=== PATIENT | female | born 1970 | race Caucasian/White ===

== ENCOUNTER 2021-06-30 18:01 | Emergency (ER) | payer OTHER, MEDICAID, SELFPAY ==
[~2021-06-30] VITALS: Ht 167.6 cm; Wt 100.2 kg
[2021-06-30 18:07] VITALS: BP_SYST 135
--- NOTE | 2021-06-30 18:10 | NUR ---
Patient to ER bed 1 to gown for evaluation. Side rails up. Report given to LILA AGOSTO.
--- NOTE | 2021-06-30 18:12 | NUR ---
Pt came into ER with new onset of bilateral lower extremity swelling [id number]. Pt presenting with raspy voice with cough and bilateral lower extremity swelling with pain 8/10. Pt is AAOX3 speaking full sentences breathing is even and unlabored. Pt reports she is a 20 year plus smoker. VSS no acute distress noted at this time. Wheezes heard bilaterally in lung gonzalez. Resting in gurney attached to monitor.
--- NOTE | 2021-06-30 18:15 | NUR ---
ER at bedside examining patient.
--- NOTE | 2021-06-30 18:48 | NUR ---
X-ray at bedside.
--- NOTE | 2021-06-30 18:51 | NUR ---
# 22 gauge angiocath placed to LFA. Use of asceptic technique. Opsite placed over site. Blood return noted. Blood for lab drawn from site. Flushed with 10 cc of normal saline. No evidence of infiltration noted. Patient tolerated well.
--- NOTE | 2021-06-30 18:51 | NUR ---
Lab at bedside.
--- NOTE | 2021-06-30 19:10 | NUR ---
Pt ambulated to restroom independently for urine specimen gait steady and straight.
[2021-06-30 19:11] LABS: ANION GAP 7 (5-15); CALCIUM 8.4 mg/dL (8.4-11.0); CHLORIDE 103 mmol/L (98-107); GLUCOSE 91 mg/dL (70-99); POTASSIUM 3.9 mmol/L (3.5-5.1); SODIUM SERUM 140 mmol/L (136-145); UREA NITROGEN, BLOOD 7 mg/dL (8-21)
[2021-06-30 19:12] LABS: GFR AFRICAN AMERICAN 113 mL/min (>90)
--- NOTE | 2021-06-30 19:12 | NUR ---
Report given to Sanjay AGOSTO.
[2021-06-30 19:14] LABS: HEMOGLOBIN 7.5 g/dL (12.0-16.0); MEAN CORPUSCULAR HEMOGLOBIN 21 pg (27-31); PLATELET COUNT (AUTO) 349 K/uL (130-430)
[2021-06-30 19:17] LABS: BASOPHILS % (AUTO) 0.5 % (0.0-2.0); EOSINOPHILS # (AUTO) 0.1 K/uL (0.0-0.4); EOSINOPHILS % (AUTO) 1.9 % (0.0-4.0); HEMATOCRIT 23.9 % (36-48); LYMPHOCYTES # (AUTO) 2.3 K/uL (1.0-5.5); LYMPHOCYTES % (AUTO) 35.1 % (20.5-51.5); MEAN CORPUSCULAR HGB CONC 31 % (32-36); MEAN CORPUSCULAR VOLUME 66 fL (79.0-98.0); MONOCYTES # (AUTO) 0.7 K/uL (0.0-1.0); MONOCYTES % (AUTO) 10.7 % (1.7-9.3); NEUTROPHILS # (AUTO) 3.4 K/uL (1.8-7.7); NEUTROPHILS % (AUTO) 51.8 % (40.0-70.0); RED BLOOD CELL COUNT(AUTO) 3.63 MIL/uL (4.2-6.2); RED CELL DISTRIBUTION WIDTH 18.8 % (9.0-15.0); WHITE BLOOD COUNT (AUTO) 6.5 K/uL (4.8-10.8)
[2021-06-30 19:19] LABS: ALANINE AMINOTRANSFERASE 61 U/L (12-78); ALBUMIN 3.3 g/dL (3.4-4.8); ASPARTATE AMINOTRANSFERASE 37 U/L (10-37); TOTAL BILIRUBIN 0.3 mg/dL (0.0-1.0)
--- NOTE | 2021-06-30 19:30 | NUR ---
ASSUMED CARE OF PT FROM LILA AGOSTO
[2021-06-30 19:35] LABS: BARBITURATE, URINE NEGATIVE (NEG <=200); BENZODIAZEPINE, URINE NEGATIVE (NEG <=150); CANNABINOID, URINE NEGATIVE (NEG <=50); COCAINE, URINE NEGATIVE (NEG <=150); METHAMPHETAMINES SCREEN,URINE NEGATIVE (NEG <=500); OPIATE, URINE POSITIVE (NEG <=100); PHENCYCLIDINE SCREEN,URINE NEGATIVE (NEG <=25); UR TRICYCLIC ANTIDEPRESSANTS NEGATIVE (NEG <=300); URINE AMPHETAMINE NEGATIVE (NEG <=500); URINE METHADONE NEGATIVE (NEG <=200); URINE OXYCODONE SCREEN POSITIVE (NEG <=100); URINE PROPOXYPHENE SCREEN NEGATIVE (NEG <=300)
--- NOTE | 2021-06-30 20:08 | NUR ---
US AT BEDSIDE
[2021-06-30 20:25] LABS: BILIRUBIN,URINE NEGATIVE (NEGATIVE); BLOOD, URINE NEGATIVE (NEGATIVE); CLARITY/URINE CLEAR (CLEAR); COLOR,URINE YELLOW (YELLOW); GLUCOSE,URINE NEGATIVE (NEGATIVE); KETONES,URINE NEGATIVE (NEGATIVE); LEUKOCYTE ESTERASE ,URINE NEGATIVE (NEGATIVE); NITRITE, URINE NEGATIVE (NEGATIVE); PROTEIN URINE NEGATIVE (NEGATIVE); UROBILINOGEN,URINE 0.2 (0.2-1.0)
--- NOTE | 2021-06-30 21:47 | NUR ---
Patient given written and verbal discharge instructions and verbalizes understanding. ER MD discussed with patient the results and treatment provided. Patient in stable condition. ID arm band removed. Rx of given. Patient educated on pain management and to follow up with PMD. Pain Scale 2/10. Opportunity for questions provided and answered. Medication side effect fact sheet provided.
[2021-06-30 21:59] VITALS: BP_SYST 134
== END 2021-06-30 21:47 | disposition home or self-care (01) ==
LOC: SED 18:01
DX: R60.0 Localized edema (principal); D64.9 Anemia, unspecified; R74.8 Abnormal levels of other serum enzymes; Z79.899 Other long term (current) drug therapy; Z20.822 Contact with and (suspected) exposure to COVID-19
CPT/HCPCS: 36415; 71045; 80053; 80307; 81003; 83880; 84484; 85025; 93005; 93970; 99285

== ENCOUNTER 2022-01-05 23:02 | Emergency (ER) | payer MEDICAID, OTHER, SELFPAY ==
[~2022-01-05] VITALS: Ht 167.6 cm; Wt 99.8 kg
--- NOTE | 2022-01-05 23:09 | NUR ---
Patient to ER bed 7 to gown for evaluation. Side rails up. Report given to .
[2022-01-05 23:12] VITALS: BP_SYST 138
--- NOTE | 2022-01-05 23:14 | NUR ---
DR ESCALANTE IN ROOM FOR EXAM
[2022-01-05] MEDS ORDERED: METH-634 PO (23:22)
[2022-01-05] MEDS ORDERED: HYDROmorphone 1 MG/ML INJ. CARTRIDGE IM ONE (23:30)
[2022-01-05] MEDS ORDERED: CYCLOBENZAPRINE HCL 10 MG TABLET (FLEXERIL) PO ONE (23:30)
--- NOTE | 2022-01-06 00:02 | NUR ---
Pt C/O left neck pain Pt medicated Pt DC per MD's order DC instructions and prescriptions given to pt Pt verbalized understandings AOX4 VSS NAD at this time Pt exited ED in stable condition
== END 2022-01-06 00:01 | disposition home or self-care (01) ==
LOC: SED 23:02
DX: G89.29 Other chronic pain (principal); M54.2 Cervicalgia; F11.90 Opioid use, unspecified, uncomplicated; J45.909 Unspecified asthma, uncomplicated; Z79.899 Other long term (current) drug therapy
CPT/HCPCS: 96372; 99283; J1170

== ENCOUNTER 2022-01-17 11:32 | Emergency (ER) | payer MEDICAID ==
[~2022-01-17] VITALS: Ht 167.6 cm; Wt 94.8 kg
[~2022-01-17 11:32] MED LIST: METH-634 PO
[2022-01-17 11:54] VITALS: BP_SYST 132
[2022-01-17] MEDS ORDERED: predniSONE 20 MG TABLET PO ONE (12:45)
[2022-01-17] MEDS ORDERED: DIAZEPAM 5 MG TABLET (VALIUM) PO ONE (12:45)
== END 2022-01-17 13:05 | disposition left against medical advice (07) ==
LOC: SED 11:32
DX: G89.29 Other chronic pain (principal); R51.9 Headache, unspecified; M54.2 Cervicalgia; Z79.899 Other long term (current) drug therapy
CPT/HCPCS: 99283; J7512; 99281

== ENCOUNTER 2022-02-25 17:57 | Emergency (ER) | payer MEDICAID ==
[~2022-02-25] VITALS: Ht 167.6 cm; Wt 94.8 kg
[2022-02-25 18:25] VITALS: BP_SYST 125
--- NOTE | 2022-02-25 18:31 | NUR ---
Pt placed in waiting room waiting for bed to become available. Dr. Ureña made aware.
--- NOTE | 2022-02-25 19:53 | NUR ---
Pt brought self in from home due to c/o LLE pain and swelling x3 days ago. Pt states she saw her PCP on Thursday and was told to just elevate her extremity. Per pt, symptoms have worsened and pain is mostly behid the knee. +1 pitting edema noted to LLE. No discoloration; redness to site. Pt also states this am she woke up this am with neck pain which worsens with movement and also reports back spasms. Medical hx of back surgery x2 within the last 2 years and chronic pain. Addendum: 02/25/22 at 2134 by [id number] TRINY Austin
[2022-02-25] MEDS ORDERED: MORPHINE 4 MG INJ. 4 MG/ML VIAL IM ONE (20:15)
--- NOTE | 2022-02-25 20:45 | NUR ---
US at bedside for imaging.
--- NOTE | 2022-02-25 21:33 | NUR ---
Pt taken to CT for imaging via w/c.
--- NOTE | 2022-02-25 23:20 | NUR ---
Patient given written and verbal discharge instructions and verbalizes understanding. ER MD Ureña discussed with patient the results and treatment provided. Patient in stable condition. ID arm band removed. Patient educated on pain management and to follow up with PMD. Pain Scale 1/10. Opportunity for questions provided and answered.
[2022-02-25 23:21] VITALS: BP_SYST 131
== END 2022-02-25 23:20 | disposition home or self-care (01) ==
LOC: SED 17:57
DX: M79.662 Pain in left lower leg (principal); G89.29 Other chronic pain; M54.2 Cervicalgia; Z79.899 Other long term (current) drug therapy
CPT/HCPCS: 73700; 76376; 93971; 96372; 99284; J2270

== ENCOUNTER 2022-04-18 18:59 | Emergency (ER) | payer MEDICAID ==
[~2022-04-18] VITALS: Ht 167.6 cm; Wt 97.1 kg
[2022-04-18 19:32] VITALS: BP_SYST 122
--- NOTE | 2022-04-18 19:38 | NUR ---
Patient triaged and placed in waiting room. VSS and patient appears in no acute distress at this time. Accompanied by SELF, awaiting available bed, and MD notified of need for MSE.
--- NOTE | 2022-04-18 21:40 | NUR ---
Patient to ER bed 07 to gown for evaluation. Side rails up. Report given to TRINY Willson
--- NOTE | 2022-04-18 22:20 | NUR ---
Pt to bed 7 w/ c/o BLE swelling with pitting edema and pain 10/10 x "last few days". Pt states she had a cervical spine fusion x 1 week ago. C-collar on patient at this time. HOB elevated to 45 degrees and support placed for neck and back w/ blankets. Respirations even and unlabored. Pedal pulse palpable bilaterally. On cardiac monitor technician. side rails up. bed in lowest position.
[2022-04-18] MEDS ORDERED: ONDANSETRON HCL 4 MG/2 ML VIAL IVP ONE (22:30)
[2022-04-18] MEDS ORDERED: MORPHINE 4 MG INJ. 4 MG/ML VIAL IVP ONE (22:30)
[2022-04-18] MEDS ORDERED: NACL 0.9% 1,000 ML IV ONE (22:30)
[2022-04-18 23:08] LABS: LYMPHOCYTES # (AUTO) 1.6 K/uL (1.0-5.5); RED CELL DISTRIBUTION WIDTH 17.8 % (9.0-15.0)
[2022-04-18 23:23] LABS: BASOPHILS % (AUTO) 0.4 % (0.0-2.0); EOSINOPHILS # (AUTO) 0.4 K/uL (0.0-0.4); EOSINOPHILS % (AUTO) 4.5 % (0.0-4.0); HEMATOCRIT 34.1 % (36-48); HEMOGLOBIN 11.4 g/dL (12.0-16.0); LYMPHOCYTES % (AUTO) 20.3 % (20.5-51.5); MEAN CORPUSCULAR HEMOGLOBIN 28 pg (27-31); MEAN CORPUSCULAR HGB CONC 33 % (32-36); MEAN CORPUSCULAR VOLUME 83 fL (79.0-98.0); MONOCYTES % (AUTO) 12.4 % (1.7-9.3); NEUTROPHILS # (AUTO) 4.9 K/uL (1.8-7.7); NEUTROPHILS % (AUTO) 62.4 % (40.0-70.0); PLATELET COUNT (AUTO) 193 K/uL (130-430); RED BLOOD CELL COUNT(AUTO) 4.13 MIL/uL (4.2-6.2); WHITE BLOOD COUNT (AUTO) 7.9 K/uL (4.8-10.8)
[2022-04-18 23:25] LABS: CALCIUM 8.2 mg/dL (8.4-11.0); CREATININE 0.65 mg/dL (0.55-1.30); POTASSIUM 3.6 mmol/L (3.5-5.1)
[2022-04-18 23:30] LABS: ALBUMIN 3.6 g/dL (3.4-4.8); TOTAL BILIRUBIN 0.7 mg/dL (0.0-1.0)
[2022-04-19] MEDS ORDERED: CLINDAMYCIN 900 mg/50mL D5W 50 ML IV ONE (00:15)
[2022-04-19] MEDS ORDERED: cefTRIAXone 1 GM in D5W 50 ML IV ONE (00:15)
[2022-04-19] MEDS ORDERED: KETOROLAC TROMETHAMINE 30 MG VIAL IVP ONE (00:15)
[2022-04-19] MEDS ORDERED: cefTRIAXone 1 GM VIAL ONE (00:24)
[2022-04-19] MEDS ORDERED: NAPR-686 PO (00:25)
[2022-04-19] MEDS ORDERED: HYDR-3917 PO (00:25)
[2022-04-19] MEDS ORDERED: CLIN-142 PO (00:25)
[2022-04-19 01:55] VITALS: BP_SYST 136
== END 2022-04-19 01:54 | disposition home or self-care (01) ==
LOC: SED 18:59
DX: L03.115 Cellulitis of right lower limb (principal); R60.9 Edema, unspecified; J45.909 Unspecified asthma, uncomplicated; Z79.899 Other long term (current) drug therapy
CPT/HCPCS: 36415; 71045; 80053; 85025; 93970; 96361; 96365; 96368; 96375 ×2; 99285; J0696; J1885; J2270; J2405; J3490; J7030

== ENCOUNTER 2023-01-22 22:38 | Emergency (ER) | payer MEDICAID ==
[~2023-01-22 22:38] MED LIST changes: +CLIN-142 PO; +HYDR-3917 PO; +NAPR-686 PO
[2023-01-22 22:53] VITALS: BP_SYST 145
[2023-01-23 01:10] LABS: ANION GAP 5 (5-15); CALCIUM 8.6 mg/dL (8.4-11.0); CHLORIDE 98 mmol/L (98-107); CREATININE 0.75 mg/dL (0.55-1.30); GFR AFRICAN AMERICAN 104 mL/min (>90); GLUCOSE 80 mg/dL (70-99); UREA NITROGEN, BLOOD 5 mg/dL (8-21)
[2023-01-23 01:16] LABS: ALANINE AMINOTRANSFERASE 37 U/L (12-78); ALBUMIN 3.7 g/dL (3.4-4.8); ASPARTATE AMINOTRANSFERASE 27 U/L (10-37); TOTAL BILIRUBIN 0.4 mg/dL (0.0-1.0)
[2023-01-23 01:40] LABS: BASOPHILS % (AUTO) 0.5 % (0.0-2.0); EOSINOPHILS # (AUTO) 0.3 K/uL (0.0-0.4); EOSINOPHILS % (AUTO) 3.8 % (0.0-4.0); HEMATOCRIT 32.9 % (36-48); HEMOGLOBIN 10.7 g/dL (12.0-16.0); LYMPHOCYTES # (AUTO) 2.3 K/uL (1.0-5.5); LYMPHOCYTES % (AUTO) 34.3 % (20.5-51.5); MEAN CORPUSCULAR HEMOGLOBIN 27 pg (27-31); MEAN CORPUSCULAR HGB CONC 32 % (32-36); MEAN CORPUSCULAR VOLUME 83 fL (79.0-98.0); MONOCYTES # (AUTO) 0.6 K/uL (0.0-1.0); MONOCYTES % (AUTO) 8.6 % (1.7-9.3); NEUTROPHILS # (AUTO) 3.5 K/uL (1.8-7.7); NEUTROPHILS % (AUTO) 52.8 % (40.0-70.0); PLATELET COUNT (AUTO) 248 K/uL (130-430); RED BLOOD CELL COUNT(AUTO) 3.98 MIL/uL (4.2-6.2); RED CELL DISTRIBUTION WIDTH 15.9 % (9.0-15.0); WHITE BLOOD COUNT (AUTO) 6.7 K/uL (4.8-10.8)
[2023-01-23] MEDS ORDERED: OXYCODONE/ACETAMINOPHEN *10*mg/325 mg TABLET PO ONE (01:45)
[2023-01-23] MEDS ORDERED: FURO-150 PO (03:27)
[2023-01-23 04:03] VITALS: BP_SYST 137
== END 2023-01-23 04:01 | disposition home or self-care (01) ==
LOC: SED 22:38
DX: R60.9 Edema, unspecified (principal); I10 Essential (primary) hypertension; D64.9 Anemia, unspecified; J45.909 Unspecified asthma, uncomplicated; Z79.899 Other long term (current) drug therapy
CPT/HCPCS: 36415; 71045; 80053; 83605; 83880; 84484; 85025; 87040; 93970; 99285

== ENCOUNTER 2023-03-18 13:51 | Emergency (ER) | payer MEDICAID ==
[~2023-03-18] VITALS: Ht 167.6 cm; Wt 84.4 kg
[~2023-03-18 13:51] MED LIST changes: +FURO-150 PO
[2023-03-18 14:09] VITALS: BP_SYST 131
[2023-03-18 14:58] LABS: BLOOD, URINE 2+ (NEGATIVE); COLOR,URINE YELLOW (YELLOW); GLUCOSE,URINE NEGATIVE (NEGATIVE); KETONES,URINE TRACE (NEGATIVE); LEUKOCYTE ESTERASE ,URINE TRACE (NEGATIVE); NITRITE, URINE NEGATIVE (NEGATIVE); PROTEIN URINE 2+ (NEGATIVE)
[2023-03-18 15:04] LABS: BILIRUBIN,URINE NEGATIVE (NEGATIVE); CLARITY/URINE HAZY (CLEAR)
[2023-03-18 15:08] LABS: BACTERIA,URINE FEW /HPF (None Seen); WBC,URINE 0-3 /HPF (0-3)
[2023-03-18] MEDS ORDERED: NITR-85 PO (15:12)
[2023-03-18] MEDS ORDERED: NITROFURANTOIN MONOHYD/M-CRYST 100 MG CAPSULE (MacroBID) PO ONE (15:15)
== END 2023-03-18 15:36 | disposition home or self-care (01) ==
LOC: SED 13:51
DX: R33.9 Retention of urine, unspecified (principal); T88.59XA Other complications of anesthesia, initial encounter; J45.909 Unspecified asthma, uncomplicated; Z79.899 Other long term (current) drug therapy
CPT/HCPCS: 81000; 87086; 99284

== ENCOUNTER 2023-04-05 22:04 | Emergency (ER) | payer MEDICAID ==
[~2023-04-05] VITALS: Ht 165.1 cm; Wt 95.3 kg
[~2023-04-05 22:04] MED LIST changes: +NITR-85 PO
[2023-04-05 22:27] VITALS: BP_SYST 141
--- NOTE | 2023-04-06 00:05 | NUR ---
PATIENT PLACED IN ED BED 3, REPORT GIVEN TO USHA
[2023-04-06 00:27] LABS: BASOPHILS % (AUTO) 0.7 % (0.0-2.0); EOSINOPHILS # (AUTO) 0.2 K/uL (0.0-0.4); EOSINOPHILS % (AUTO) 2.7 % (0.0-4.0); HEMATOCRIT 27.1 % (36-48); HEMOGLOBIN 8.8 g/dL (12.0-16.0); LYMPHOCYTES # (AUTO) 1.5 K/uL (1.0-5.5); LYMPHOCYTES % (AUTO) 24.4 % (20.5-51.5); MEAN CORPUSCULAR HEMOGLOBIN 26 pg (27-31); MEAN CORPUSCULAR HGB CONC 33 % (32-36); MEAN CORPUSCULAR VOLUME 81 fL (79.0-98.0); MONOCYTES # (AUTO) 0.8 K/uL (0.0-1.0); MONOCYTES % (AUTO) 12.6 % (1.7-9.3); NEUTROPHILS # (AUTO) 3.7 K/uL (1.8-7.7); NEUTROPHILS % (AUTO) 59.6 % (40.0-70.0); PLATELET COUNT (AUTO) 374 K/uL (130-430); RED BLOOD CELL COUNT(AUTO) 3.33 MIL/uL (4.2-6.2); RED CELL DISTRIBUTION WIDTH 17.3 % (9.0-15.0); WHITE BLOOD COUNT (AUTO) 6.2 K/uL (4.8-10.8)
--- NOTE | 2023-04-06 01:00 | NUR ---
ULTRASOUND AT BEDSIDE FOR ORDERED EXAM.
[2023-04-06 01:02] LABS: CALCIUM 8.3 mg/dL (8.4-11.0); CREATININE 0.58 mg/dL (0.55-1.30); TOTAL BILIRUBIN 0.3 mg/dL (0.0-1.0)
--- NOTE | 2023-04-06 01:32 | NUR ---
MD AT BEDSIDE TO DISCUSS FINDINGS AND DISCHARGE PLANS.
[2023-04-06 01:33] VITALS: BP_SYST 141
--- NOTE | 2023-04-06 01:47 | NUR ---
Patient given written and verbal discharge instructions and verbalizes understanding. ER MD DENNISON discussed with patient the results and treatment provided. Patient in stable condition. ID arm band removed. Rx of NONE given. Patient educated on pain management and to follow up with PMD. Pain Scale . Opportunity for questions provided and answered. Medication side effect fact sheet provided.
== END 2023-04-06 01:44 | disposition home or self-care (01) ==
LOC: SED 22:04
DX: R22.43 Localized swelling, mass and lump, lower limb, bilateral (principal); J45.909 Unspecified asthma, uncomplicated; Z79.899 Other long term (current) drug therapy
CPT/HCPCS: 36415; 80053; 83880; 85025; 93970; 99284

== ENCOUNTER 2024-01-22 23:29 | Emergency (ER) | payer MEDICAID ==
[~2024-01-22] VITALS: Ht 170.2 cm; Wt 79.4 kg
[2024-01-22 23:36] VITALS: BP_SYST 118; PULSE 68; RESP 16; TEMP 97.4; O2SAT 100
[2024-01-23 01:18] VITALS: BP_SYST 139; PULSE 72; RESP 18; TEMP 97.2; O2SAT 97
== END 2024-01-23 01:18 | disposition home or self-care (01) ==
LOC: SED 23:29
DX: S23.41XA Sprain of ribs, initial encounter (principal); J45.909 Unspecified asthma, uncomplicated; F17.200 Nicotine dependence, unspecified, uncomplicated; Z79.899 Other long term (current) drug therapy; X58.XXXA Exposure to other specified factors, initial encounter; Y93.89 Activity, other specified; Y92.89 Other specified places as the place of occurrence of the external cause; Y99.8 Other external cause status
CPT/HCPCS: 71045; 99283